=== PATIENT | female | born 2000 | race Caucasian/White ===

== ENCOUNTER 2020-06-18 18:44 | Emergency (ER) | payer BC ==
[2020-06-18 19:50] LABS: BLOOD UREA NITROGEN,BUN 7 mg/dL (7.0-18.0); CARBON DIOXIDE,CO2 23.6 mmol/L (21.0-32.0); CHLORIDE,CL 103 mmol/L (98-107); GLUCOSE RANDOM 84 mg/dL (74-106); LIPASE 100 U/L (73-393); POTASSIUM,K 3.8 mmol/L (3.5-5.1); SODIUM,NA 138 mmol/L (136-145)
--- NOTE | 2020-06-18 20:23 | US ---
INDICATION: Right flank pain TECHNIQUE: Ultrasound OB pelvis transabdominal. Real-time keating-scale imaging of the fetus was performed with anatomic survey limited to biometric measurements. COMPARISON: None FINDINGS: Sonographic imaging demonstrates a single intrauterine gestation. Mild right renal pelvicaliectasis is present and may be physiologic. The appendix cannot be identified by sonography. heart rate: 146 bpm Orientation: Cephalic Placenta: Anterior Amniotic fluid: Subjectively normal with RICHI of 12.1 cm and SDP of 4.2 cm. Cervix: Not visualized The composite ultrasound gestational age is calculated at 18 weeks, 1 day with an estimated sonographic due date of 11/18/2020. The estimated weight is 215 +/-32 grams which lies at the 57%. The following biometric measurements were obtained: Biparietal diameter: 4 cm Head circumference: 15.3 cm Abdominal circumference: 12.1 cm Femur length: 2.6 cm IMPRESSION: 1. Single viable intrauterine with an estimated gestational age of 18 weeks, 1 day. 2. Mild right renal pelvicaliectasis is present and may be physiologic. Clinical correlation and follow-up is recommended to exclude the less likely possibility of distal ureteral obstruction. Dictated by John Pulido MD @ 06/18/2020 8:22:48 PM Dictated by: John Pulido MD @ 06/18/2020 20:23:12 (Electronically Signed)
--- NOTE | 2020-06-18 20:49 | EDM.PDOC ---
ED HPI GENERAL MEDICAL PROBLEM - General Chief Complaint: Flank Pain Stated Complaint: Right Flank Pain Time Seen by Provider: 06/18/20 18:44 Source of Information: Reports: Patient History Limitations: Reports: No Limitations - History of Present Illness INITIAL COMMENTS - FREE TEXT/NARRATIVE: HISTORY AND PHYSICAL: History of present illness: Patient is a 20-year-old female who presents to the ED today with concern of acute onset right-sided flank pain that began a few hours prior (4pm) to arrival to the ED. Patient states that she was sitting when she began feeling sharp sensations of her right flank area that she states the sharp sensations come and go. Patient states when the sharp sensations happen, she does get nauseous and has had 2-3 episodes of vomiting associated with the pain. Patient states that she is approximately 18 weeks in gestation and has had a normal thus far. Patient states she follows with Dr. Loera at [facility] and has had a routine . Patient denies any cramping sensations of her abdomen or vaginal bleeding / change in discharge. Patient denies fever, chills, chest pain, shortness of breath, or cough. Denies headache, neck stiff ness, change in vision, syncope, or near syncope. Denies abdominal pain, diarrhea, constipation, or dysuria. Has not noted any blood in urine or stool. Patient has been eating and drinking appropriately prior to onset of symptoms. Review of systems: As per history of present illness and below otherwise all systems reviewed and negative. Past medical history: As per history of present illness and as reviewed below otherwise noncontributory. Surgical history: As per history of present illness and as reviewed below otherwise noncontributory. Social history: See social history for further information Family history: As per history of present illness and as reviewed below otherwise noncontributory. Physical exam: General: Patient is alert, oriented, and in no acute distress. Patient sitting comfortably on exam table. Vitals stable and reviewed by me. HEENT: Atraumatic, normocephalic, pupils equal and reactive bilaterally, negative for conjunctival pallor or scleral icterus, mucous membranes moist, TMs normal bilaterally, throat clear, neck supple, nontender, trachea midline. No drooling or trismus noted. No meningeal signs. No hot potato voice noted. Lungs: Clear to auscultation, breath sounds equal bilaterally, chest nontender. Heart: S1S2, regular rate and rhythm without overt murmur Abdomen: Soft, nondistended, nontender. Negative for masses or hepatosplenomegaly. Positive for costovertebral tenderness of the right. Pelvis: Stable nontender. Genitourinary: Deferred. Rectal: Deferred. Skin: Intact, warm, dry. No lesions or rashes noted. Extremities: Atraumatic, negative for cords or calf pain. Neurovascular unremarkable. Neuro: Awake, alert, oriented. Cranial nerves II through XII unremarkable. Cerebellum unremarkable. Motor and sensory unremarkable throughout. Exam nonfocal. Notes: FHT at bedside 145. Dr. Estrada verbally involved in patient care. Patient has not had any episodes of vomiting today in the ED and remains comfortable/stable on exam. Abdomen is non tender but does have positive CVA tenderness of the right flank area. Ultrasound shows a single viable intrauterine with an estimated gestational age of 18 weeks and 1 day. Mild right renal pelvocaliectasis possibly physiologic vs distal ureteral obstruction. Urinalysis shows that patient does have hematuria with 2-4 red blood cells, negative leukocyte esterase, negative nitrate, 1-3 white blood cells Patient does have mild leukocytosis with lactate WNL. Suspect due to status at this time as no further indication for infection suspected. With patient sudden onset of sharp colicky right flank pain, presence of right- sided hydronephrosis, and hematuria, I am suspecting that patient has a possible ureterolithiasis. I did offer patient further imaging to assess for this but she declines at this time. All risks vs benefits discussed with patient and expresses understanding. Although patient does not have an overt infection of her urine at this time, will send urine for culture as well as placed on Macrobid due to the presence of 1-3 white blood cells and a sample that is mildly contaminated. Offered to send in pain medication for patient, but she states she would prefer to take only Tylenol for pain management. Patient was placed on the expedited follow-up list to be seen on Saturday and sent home with a strainer. Strict return precautions thoroughly discussed as long as the importance for follow up on Saturday for reevaluation. Voices understanding and is agreeable to plan of care. Denies any further questions or concerns at this time. Diagnostics: CBC, CMP, UA w culture, Lipase, 2nd trimester abd US Therapeutics: None Prescription: Zofran, Macrobid (Patient was offered RX for pain medication but she declines at this time) Impression: Right flank pain with hydronephrosis Hematuria , 18 weeks, viable Plan: 1. Take medication as prescribed. You can use Tylenol as directed for pain and discomfort as this is safe to use in . 2. Follow up on Saturday with your OBGYN or primary care provider. You have been placed on the expedited follow up list. Use the strainer that has been provided to you during urination to possibly retrieve a stone. 3. Return to the ED as needed and as discussed. Definitive disposition and diagnosis as appropriate pending reevaluation and review of above. 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 ED EXAM, GENERAL - Physical Exam Exam: See Below (see dictation) Course - Vital Signs Last Recorded V/S: Last Vital Signs Temp 96.3 F L 06/18/20 20:15 Pulse 85 06/18/20 20:15 Resp 18 06/18/20 20:15 BP 105/61 06/18/20 20:15 Pulse Ox 96 06/18/20 20:15 - Orders/Labs/Meds Orders: Active Orders 24 hr Category Date Time Status CULTURE URINE [RM] Stat Lab 06/18/20 20:41 Ordered Labs: Laboratory Tests 06/18/20 06/18/20 06/18/20 Range/Units 19:14 19:25 19:25 WBC 15.80 H (4.0-11.0) K/uL RBC 4.00 L (4.30-5.90) M/uL Hgb 12.3 (12.0-16.0) g/dL Hct 36.3 (36.0-46.0) % MCV 90.8 (80.0-98.0) fL MCH 30.8 (27.0-32.0) pg MCHC 33.9 (31.0-37.0) g/dL RDW Std Deviation 41.8 (28.0-62.0) fl RDW Coeff of Molina 13 (11.0-15.0) % Plt Count 205 (150-400) K/uL MPV 11.20 (7.40-12.00) fL Neut % (Auto) 81.7 H (48.0-80.0) % Lymph % (Auto) 14.0 L (16.0-40.0) % [place] % (Auto) 3.8 (0.0-15.0) % Eos % (Auto) 0.4 (0.0-7.0) % Baso % (Auto) 0.1 (0.0-1.5) % Neut # (Auto) 12.9 H (1.4-5.7) K/uL Lymph # (Auto) 2.2 (0.6-2.4) K/uL Karnes # (Auto) 0.6 (0.0-0.8) K/uL Eos # (Auto) 0.1 (0.0-0.7) K/uL Baso # (Auto) 0.0 (0.0-0.1) K/uL Nucleated RBC % 0.0 /100WBC Nucleated RBCs # 0 K/uL Lactate (0.20-2.00) mmol/L Sodium 138 (136-145) mmol/L Potassium 3.8 (3.5-5.1) mmol/L Chloride 103 (98-107) mmol/L Carbon Dioxide 23.6 (21.0-32.0) mmol/L BUN 7 (7.0-18.0) mg/dL Creatinine 0.7 (0.6-1.0) mg/dL Est Cr Clr Drug Dosing 108.86 mL/min Estimated GFR (MDRD) > 60.0 ml/min Glucose 84 (74-106) mg/dL Calcium 8.9 (8.5-10.1) mg/dL Total Bilirubin 0.3 (0.2-1.0) mg/dL AST 17 (15-37) IU/L ALT 24 (14-63) IU/L Alkaline Phosphatase 58 (46-116) U/L Total Protein 7.5 (6.4-8.2) g/dL Albumin 3.3 L (3.4-5.0) g/dL Globulin 4.2 H (2.6-4.0) g/dL Albumin/Globulin Ratio 0.8 L (0.9-1.6) Lipase 100 (73-393) U/L Urine Color YELLOW Urine Appearance CLEAR Urine pH 6.5 (5.0-8.0) Ur Specific [place] 1.020 (1.001-1.035) Urine Protein NEGATIVE (NEGATIVE) mg/dL Urine Glucose (UA) NEGATIVE (NEGATIVE) mg/dL Urine Ketones 15 H (NEGATIVE) mg/dL Urine Occult Blood TRACE-INTACT H (NEGATIVE) Urine Nitrite NEGATIVE (NEGATIVE) Urine Bilirubin NEGATIVE (NEGATIVE) Urine Urobilinogen 0.2 (<2.0) EU/dL Ur Leukocyte Esterase NEGATIVE (NEGATIVE) Urine RBC 2-4 (0-2/HPF) Urine WBC 1-3 (0-5/HPF) Ur Epithelial Cells FEW (NONE-FEW) Urine Bacteria FEW (NEGATIVE) Urine Mucus LIGHT (NONE-MOD) 06/18/20 Range/Units 19:28 WBC (4.0-11.0) K/uL RBC (4.30-5.90) M/uL Hgb (12.0-16.0) g/dL Hct (36.0-46.0) % MCV (80.0-98.0) fL MCH (27.0-32.0) pg MCHC (31.0-37.0) g/dL RDW Std Deviation (28.0-62.0) fl RDW Coeff of Molina (11.0-15.0) % Plt Count (150-400) K/uL MPV (7.40-12.00) fL Neut % (Auto) (48.0-80.0) % Lymph % (Auto) (16.0-40.0) % Karnes % (Auto) (0.0-15.0) % Eos % (Auto) (0.0-7.0) % Baso % (Auto) (0.0-1.5) % Neut # (Auto) (1.4-5.7) K/uL Lymph # (Auto) (0.6-2.4) K/uL Karnes # (Auto) (0.0-0.8) K/uL Eos # (Auto) (0.0-0.7) K/uL Baso # (Auto) (0.0-0.1) K/uL Nucleated RBC % /100WBC Nucleated RBCs # K/uL Lactate 0.6 (0.20-2.00) mmol/L Sodium (136-145) mmol/L Potassium (3.5-5.1) mmol/L Chloride (98-107) mmol/L Carbon Dioxide (21.0-32.0) mmol/L BUN (7.0-18.0) mg/dL Creatinine (0.6-1.0) mg/dL Est Cr Clr Drug Dosing mL/min Estimated GFR (MDRD) ml/min Glucose (74-106) mg/dL Calcium (8.5-10.1) mg/dL Total Bilirubin (0.2-1.0) mg/dL AST (15-37) IU/L ALT (14-63) IU/L Alkaline Phosphatase (46-116) U/L Total Protein (6.4-8.2) g/dL Albumin (3.4-5.0) g/dL Globulin (2.6-4.0) g/dL Albumin/Globulin Ratio (0.9-1.6) Lipase (73-393) U/L Urine Color Urine Appearance Urine pH (5.0-8.0) Ur Specific [place] (1.001-1.035) Urine Protein (NEGATIVE) mg/dL Urine Glucose (UA) (NEGATIVE) mg/dL Urine Ketones (NEGATIVE) mg/dL Urine Occult Blood (NEGATIVE) Urine Nitrite (NEGATIVE) Urine Bilirubin (NEGATIVE) Urine Urobilinogen (<2.0) EU/dL Ur Leukocyte Esterase (NEGATIVE) Urine RBC (0-2/HPF) Urine WBC (0-5/HPF) Ur Epithelial Cells (NONE-FEW) Urine Bacteria (NEGATIVE) Urine Mucus (NONE-MOD) Departure - Departure Time of Disposition: 20:41 Disposition: Home, Self-Care 01 Clinical Impression: Right flank pain, Hydronephrosis, right Hematuria Qualifiers: Hematuria type: unspecified type Qualified Code(s): R31.9 - Hematuria, unspecified Qualifiers: Weeks of gestation: 18 weeks Qualified Code(s): Z3A.18 - 18 weeks gestation of - Discharge Information Prescriptions: Ondansetron [Zofran ODT] 4 mg PO Q6H PRN #8 tab.dis PRN Reason: Nausea/Vomiting Referrals: Mariela Arroyo MD [Primary Care Provider] - Additional Instructions: The following information is given to patients seen in the emergency department who are being discharged to home. This information is to outline your options for follow-up care. We provide all patients seen in our emergency department with a follow-up referral. The need for follow-up, as well as the timing and circumstances, are variable depending upon the specifics of your emergency department visit. If you don't have a primary care physician on staff, we will provide you with a referral. We always advise you to contact your personal physician following an emergency department visit to inform them of the circumstance of the visit and for follow-up with them and/or the need for any referrals to a consulting specialist. The emergency department will also refer you to a specialist when appropriate. This referral assures that you have the opportunity for follow-up care with a specialist. All of these measure are taken in an effort to provide you with optimal care, which includes your follow-up. Under all circumstances we always encourage you to contact your private physician who remains a resource for coordinating your care. When calling for follow-up care, please make the office aware that this follow-up is from your recent emergency room visit. If for any reason you are refused follow-up, please contact the [facility] Emergency Department at and asked to speak to the emergency department charge nurse. [facility] [address] [place] [id number] [address] [facility] [address] [place] [address] 1. Take medication as prescribed. You can use Tylenol as directed for pain and discomfort as this is safe to use in . 2. Follow up on Saturday with your OBGYN or primary care provider. You have been placed on the expedited follow up list. Use the strainer that has been provided to you during urination to possibly retrieve a stone. 3. Return to the ED as needed and as discussed. Sepsis Event Note (ED) - Evaluation Sepsis Screening Result: No Definite Risk - Focused Exam Vital Signs: Vital Signs Temp Pulse Resp BP Pulse Ox 06/18/20 20:15 96.3 F L 85 18 105/61 96 06/18/20 18:53 96.4 F L 91 16 111/59 L 99 - My Orders Last 24 Hours: My Active Orders 06/18/20 20:41 CULTURE URINE [RM] Stat - Assessment/Plan Last 24 Hours: My Active Orders 06/18/20 20:41 CULTURE URINE [RM] Stat
== END 2020-06-18 21:04 | disposition home or self-care (01) ==
LOC: MW.ED 18:44
DX: O99.891 Other specified diseases and conditions complicating pregnancy (principal); R31.9 Hematuria, unspecified; N13.30 Unspecified hydronephrosis; Z88.2 Allergy status to sulfonamides; Z3A.18 18 weeks gestation of pregnancy
CPT/HCPCS: 36415; 76805; 76805-26; 80053; 81001; 83605; 83690; 85025; 87086; 99284; 99284-25

== ENCOUNTER 2020-11-14 20:12 | Inpatient (IN) | payer BC ==
[2020-11-14] MEDS ORDERED: Oxytocin/0.9 % Sodium Chloride 30 UNIT/500 ML BAG IV SCH (20:15)
[2020-11-14] MEDS ORDERED: Ondansetron 4 MG/2 ML SDV IVPUSH PRN (20:15)
[2020-11-14] MEDS ORDERED: Sodium Chloride 0.9% 2.5 ML Syringe FLUSH PRN (20:15)
[2020-11-14] MEDS ORDERED: Tranexamic Acid 1,000 MG in Sodium Chloride 0.9% 100 ML IV PRN (20:15)
[2020-11-14] MEDS ORDERED: Sodium Chloride 0.9% 10 ML Syringe FLUSH PRN (20:15)
[2020-11-14] MEDS ORDERED: Lidocaine 1% 50 ML MDV INJECT PRN (20:15)
[2020-11-14] MEDS ORDERED: Methylergonovine 0.2 MG/1 ML Amp IM PRN (20:15)
[2020-11-14] MEDS ORDERED: Butorphanol 1 MG/ML SDV IVPUSH PRN (20:15)
[2020-11-14] MEDS ORDERED: Carboprost Tromethamine 250 MCG/1 ML Amp IM PRN (20:15)
[2020-11-14] MEDS ORDERED: Sodium Chloride 0.9% 10 ML SDV IV PRN (20:15)
[2020-11-14] MEDS ORDERED: Misoprostol 200 MCG Tab PO PRN (20:15)
[2020-11-14] MEDS ORDERED: Water For Irrigation,Sterile 1,000 ML Container IRR PRN (20:15)
[2020-11-14] MEDS ORDERED: Nalbuphine 10 MG/1 ML Vial IVPUSH PRN (20:15)
[2020-11-14] MEDS: Lactated Ringers 1,000 ML IV SCH ×2 (20:25→21:11)
[2020-11-14] MEDS ORDERED: Ampicillin 2 GM in Sodium Chloride 0.9% 100 ML IV ONE (20:30)
[2020-11-14] MEDS ORDERED: Ampicillin 2 GM Vial ONE (20:33)
[2020-11-14] MEDS ORDERED: Sodium Chloride 0.9% 100 ML ONE (20:34)
[2020-11-14] MEDS ORDERED: Ropivacaine HCl/PF 100 ML ONE (20:46)
[2020-11-14] MEDS ORDERED: fentaNYL 100 MCG/2 ML SDV ONE (20:46)
--- NOTE | 2020-11-14 21:11 | PCM.PREANE ---
Preanesthetic Assessment - Anesthesia/Transfusion/Family Hx Anesthesia History: Prior Anesthesia Without Reaction Family History of Anesthesia Reaction: No - Physical Assessment NPO Status Date: 11/14/20 NPO Status Time: 18:00 Height: 1.63 m Weight: 82.1 kg ASA Class: 2 - Lab Values: Laboratory Last Values WBC 12.34 K/uL (4.0-11.0) H 11/14/20 20:25 RBC 4.11 M/uL (4.30-5.90) L 11/14/20 20:25 Hgb 12.0 g/dL (12.0-16.0) 11/14/20 20:25 Hct 35.5 % (36.0-46.0) L 11/14/20 20:25 MCV 86.4 fL (80.0-98.0) 11/14/20 20:25 MCH 29.2 pg (27.0-32.0) 11/14/20 20:25 MCHC 33.8 g/dL (31.0-37.0) 11/14/20 20:25 RDW Std Deviation 42.1 fl (28.0-62.0) 11/14/20 20:25 RDW Coeff of Molina 14 % (11.0-15.0) 11/14/20 20:25 Plt Count 202 K/uL (150-400) 11/14/20 20:25 MPV 12.50 fL (7.40-12.00) H 11/14/20 20:25 Nucleated RBC % 0.0 /100WBC 11/14/20 20:25 Nucleated RBCs # 0 K/uL 11/14/20 20:25 - Allergies Allergies/Adverse Reactions: Allergies Allergy/AdvReac Type Severity Reaction Status Date / Time Sulfa (Sulfonamide Allergy Rash Verified 11/14/20 20:26 Antibiotics) - Acknowledgements Anesthesia Type Planned: Epidural Pt an Appropriate Candidate for the Planned Anesthesia: Yes Alternatives and Risks of Anesthesia Discussed w Pt/Guardian: Yes Pt/Guardian Understands and Agrees with Anesthesia Plan: Yes PreAnesthesia Questionnaire - Past Health History Medical/Surgical History: Denies 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 History: D&C - Infectious Disease History Infectious Disease History: Reports: None - Past Surgical History HEENT Surgical History: Reports: Oral Surgery Other HEENT Surgeries/Procedures: wisdom teeth - HOME MEDS Home Medications: Home Meds Vits #93/Iron Fum/FA [ Formula Tablet] 1 each PO DAILY 10/21/20 [History] - CURRENT (IN HOUSE) MEDS Current Meds: Current Medications Butorphanol Tartrate (Butorphanol 1 Mg/Ml Sdv) 1 mg IVPUSH Q1H PRN PRN Reason: Pain Carboprost Tromethamine (Carboprost Tromethamine 250 Mcg/1 Ml Amp) 250 mcg IM ASDIRECTED PRN PRN Reason: Post Hemorrhage Oxytocin/Sodium Chloride (Oxytocin 30 Unit/500 Ml-Ns) 30 unit in 500 mls @ 999 mls/hr IV TITRATE JENN Tranexamic Acid 1,000 mg/ (Sodium Chloride) 110 mls @ 660 mls/hr IV ONETIME PRN PRN Reason: Bleeding Lactated Ringer's (Ringers, Lactated) 1,000 mls @ 150 mls/hr IV ASDIRECTED [facility] Last Admin: 11/14/20 20:25 Dose: 999 mls/hr Documented by: Lidocaine HCl (Lidocaine 1% 50 Ml Mdv) 50 ml INJECT ONETIME PRN PRN Reason: Laceration repair Methylergonovine Maleate (Methylergonovine 0.2 Mg/1 Ml Amp) 0.2 mg IM ASDIRECTED PRN PRN Reason: Post Hemorrhage Misoprostol (Misoprostol 200 Mcg Tab) 200 mcg PO ONETIME PRN PRN Reason: Post Hemorrhage Nalbuphine HCl (Nalbuphine 10 Mg/1 Ml Vial) 10 mg IVPUSH Q1H PRN PRN Reason: Pain (severe 7-10) Ondansetron HCl (Ondansetron 4 Mg/2 Ml Sdv) 4 mg IVPUSH Q6H PRN PRN Reason: Nausea/Vomiting Sodium Chloride (Sodium Chloride 0.9% 10 Ml Syringe) 10 ml FLUSH ASDIRECTED PRN PRN Reason: Keep Vein Open Sodium Chloride (Sodium Chloride 0.9% 2.5 Ml Syringe) 2.5 ml FLUSH ASDIRECTED PRN PRN Reason: Keep Vein Open Sodium Chloride (Sodium Chloride 0.9% 10 Ml Sdv) 10 ml IV ASDIRECTED PRN PRN Reason: IV Use Sterile Water (Water For Irrigation,Sterile 1,000 Ml Container) 1,000 ml IRR ASDIRECTED PRN PRN Reason: delivery Discontinued Medications Ampicillin Sodium (Ampicillin 2 Gm Vial) Confirm Administered Dose 2 gm .ROUTE .STK-MED ONE Stop: 11/14/20 20:34 Fentanyl (Fentanyl 100 Mcg/2 Ml Sdv) Confirm Administered Dose 100 mcg .ROUTE .STK-MED ONE Stop: 11/14/20 20:47 Ampicillin Sodium 2 gm/ Sodium (Chloride) 100 mls @ 200 mls/hr IV ONETIME ONE Stop: 11/14/20 20:59 Last Admin: 11/14/20 20:46 Dose: 200 mls/hr Documented by: Sodium Chloride (Normal Saline) Confirm Administered Dose 100 mls @ as directed .ROUTE .STK-MED ONE Stop: 11/14/20 20:35 Ropivacaine (Naropin 0.2%) Confirm Administered Dose 100 mls @ as directed .ROUTE .STK-MED ONE Stop: 11/14/20 20:47
[2020-11-14] MEDS ORDERED: ePHEDrine 50 MG/ML SDV IVPUSH PRN (21:14)
[2020-11-14] MEDS ORDERED: Phenylephrine/Normal Saline 100 MCG/ML 10 ML Syringe IVPUSH PRN (21:14)
--- NOTE | 2020-11-14 21:14 | PCM.PRNOTE ---
- Free Text/Narrative Note: Anes Note Patient requests epidural for L&D. Sitting position. Level L3-L4 midline approach. Sterile technique. Chloraprep scrub to lumbar area. Sterile fenestrated drape applied. Epidural space easily achieved single attempt with ease using MARK technique. MARK at 3 cm. Cath threaded 5 cm with ease. Cath secured a t skin using sterile clear adhesive dressing. 2104 Test 3 cc 1.5% lido with epi negative. 2106 Load 10cc 0.2% ropivicaine with 1 mcg cc fentnayl in slow divided doses. 2111 Pumps started with 90 cc same solution. Rate is 8 cc hr wiht 6 cc q 20 min prn bolus. Massimo well. Time with patient [id number] Gustavo Cruz CRNA
[2020-11-14] MEDS ORDERED: Calcium Carbonate 500 MG Tab.Chew PO ONE (23:16)
[2020-11-14] MEDS ORDERED: Sodium Chloride 0.9% 50 ML ONE (23:31)
[2020-11-14] MEDS ORDERED: Ampicillin 1 GM Vial ONE (23:31)
[2020-11-14] MEDS ORDERED: Ampicillin 1 GM in Sodium Chloride 0.9% 50 ML IV SCH (23:45)
[2020-11-15] MEDS ORDERED: Bisacodyl 10 MG Supp RECTAL PRN (01:25)
[2020-11-15] MEDS ORDERED: Docusate Sodium 100 MG Cap PO PRN (01:25)
[2020-11-15] MEDS ORDERED: Ibuprofen 800 MG Tab PO PRN (01:25)
[2020-11-15] MEDS ORDERED: oxyCODONE 5 MG Tab PO PRN (01:25)
[2020-11-15] MEDS ORDERED: Witch Hazel Medicated Pads 40/Jar TOP PRN (01:25)
[2020-11-15] MEDS ORDERED: Lanolin 100% Cream 7 GM Tube TOP PRN (01:25)
[2020-11-15] MEDS ORDERED: Benzocaine/Menthol 20%-0.5% Spray 78 GM Cannister TOP PRN (01:25)
[2020-11-15] MEDS ORDERED: Acetaminophen 500 MG Tab PO PRN (01:25)
--- NOTE | 2020-11-15 01:29 | PCM.DEL ---
L & D Note - General Info Date of Service: 11/15/20 Mother's Due Date: 11/21/20 - Delivery Note Labor: Spontaneous Delivery Outcome: Livebirth Infant Delivery Method: Spontaneous Vaginal Delivery-Single Presentation: Vertex Nuchal Cord: None Anesthesia Type: Epidural Amniotic Fluid Description: Clear Episiotomy Type: None Laceration: None Placenta: Intact, Spontaneous Cord: 3 Vessels Estimated Blood Loss: 200 Resuscitation Needed: No Gibbon: Suctioned, Stimulated, Remington Used Score 1 min: 9 Score 5 min: 9 Delivery Comments (Free Text/Narrative):: Live female infant, weight 3480g Received 2 doses of Ampicillin prophylaxis prior to delivery - General Info Date of Service: 11/15/20 - Patient Data Weight - Most Recent: 82.1 kg I&O - Last 24 Hours: Intake & Output 11/14/20 11/14/20 11/15/20 14:59 22:59 06:59 Intake Total 1100 950 Balance 1100 950 Lab Results Last 24 Hours: Laboratory Results - last 24 hr 11/14/20 11/14/20 11/14/20 Range/Units 20:25 20:25 20:35 WBC 12.34 H (4.0-11.0) K/uL RBC 4.11 L (4.30-5.90) M/uL Hgb 12.0 (12.0-16.0) g/dL Hct 35.5 L (36.0-46.0) % MCV 86.4 (80.0-98.0) fL MCH 29.2 (27.0-32.0) pg MCHC 33.8 (31.0-37.0) g/dL RDW Std Deviation 42.1 (28.0-62.0) fl RDW Coeff of Molina 14 (11.0-15.0) % Plt Count 202 (150-400) K/uL MPV 12.50 H (7.40-12.00) fL Nucleated RBC % 0.0 /100WBC Nucleated RBCs # 0 K/uL SARS-CoV-2 RNA (TREY) NEGATIVE (NEGATIVE) Blood Type A POSITIVE Antibody Screen NEGATIVE Med Orders - Current: Current Medications Butorphanol Tartrate (Butorphanol 1 Mg/Ml Sdv) 1 mg IVPUSH Q1H PRN PRN Reason: Pain Carboprost Tromethamine (Carboprost Tromethamine 250 Mcg/1 Ml Amp) 250 mcg IM ASDIRECTED PRN PRN Reason: Post Hemorrhage Ephedrine Sulfate (Ephedrine 50 Mg/Ml Sdv) 10 mg IVPUSH Q5M PRN PRN Reason: Hypotension Oxytocin/Sodium Chloride (Oxytocin 30 Unit/500 Ml-Ns) 30 unit in 500 mls @ 999 mls/hr IV TITRATE [facility] Last Admin: 11/15/20 01:10 Dose: 999 mls/hr Documented by: Tranexamic Acid 1,000 mg/ (Sodium Chloride) 110 mls @ 660 mls/hr IV ONETIME PRN PRN Reason: Bleeding Lactated Ringer's (Ringers, Lactated) 1,000 mls @ 150 mls/hr IV ASDIRECTED [facility] Last Admin: 11/14/20 21:11 Dose: 999 mls/hr Documented by: Ampicillin Sodium 1 gm/ Sodium (Chloride) 50 mls @ 100 mls/hr IV Q4H [facility] Last Admin: 11/14/20 23:48 Dose: 100 mls/hr Documented by: Lidocaine HCl (Lidocaine 1% 50 Ml Mdv) 50 ml INJECT ONETIME PRN PRN Reason: Laceration repair Methylergonovine Maleate (Methylergonovine 0.2 Mg/1 Ml Amp) 0.2 mg IM ASDIRECTED PRN PRN Reason: Post Hemorrhage Misoprostol (Misoprostol 200 Mcg Tab) 200 mcg PO ONETIME PRN PRN Reason: Post Hemorrhage Nalbuphine HCl (Nalbuphine 10 Mg/1 Ml Vial) 10 mg IVPUSH Q1H PRN PRN Reason: Pain (severe 7-10) Ondansetron HCl (Ondansetron 4 Mg/2 Ml Sdv) 4 mg IVPUSH Q6H PRN PRN Reason: Nausea/Vomiting Phenylephrine HCl (Phenylephrine/Normal Saline 100 Mcg/Ml 10 Ml Syringe) 0.1 mg IVPUSH Q5M PRN PRN Reason: Hypotension Sodium Chloride (Sodium Chloride 0.9% 10 Ml Syringe) 10 ml FLUSH ASDIRECTED PRN PRN Reason: Keep Vein Open Sodium Chloride (Sodium Chloride 0.9% 2.5 Ml Syringe) 2.5 ml FLUSH ASDIRECTED PRN PRN Reason: Keep Vein Open Sodium Chloride (Sodium Chloride 0.9% 10 Ml Sdv) 10 ml IV ASDIRECTED PRN PRN Reason: IV Use Sterile Water (Water For Irrigation,Sterile 1,000 Ml Container) 1,000 ml IRR ASDIRECTED PRN PRN Reason: delivery Discontinued Medications Ampicillin Sodium (Ampicillin 2 Gm Vial) Confirm Administered Dose 2 gm .ROUTE .STK-MED ONE Stop: 11/14/20 20:34 Ampicillin Sodium (Ampicillin 1 Gm Vial) Confirm Administered Dose 1 gm .ROUTE .STK-MED ONE Stop: 11/14/20 23:32 Calcium Carbonate/Glycine (Calcium Carbonate 500 Mg Tab.Chew) 1,000 mg PO ONETIME ONE Stop: 11/14/20 23:17 Last Admin: 11/14/20 23:35 Dose: 1,000 mg Documented by: Fentanyl (Fentanyl 100 Mcg/2 Ml Sdv) Confirm Administered Dose 100 mcg .ROUTE .STK-MED ONE Stop: 11/14/20 20:47 Ampicillin Sodium 2 gm/ Sodium (Chloride) 100 mls @ 200 mls/hr IV ONETIME ONE Stop: 11/14/20 20:59 Last Admin: 11/14/20 20:46 Dose: 200 mls/hr Documented by: Sodium Chloride (Normal Saline) Confirm Administered Dose 100 mls @ as directed .ROUTE .STK-MED ONE Stop: 11/14/20 20:35 Ropivacaine (Naropin 0.2%) Confirm Administered Dose 100 mls @ as directed .ROUTE .STK-MED ONE Stop: 11/14/20 20:47 Sodium Chloride (Normal Saline) Confirm Administered Dose 50 mls @ as directed .ROUTE .[facility]-MED ONE Stop: 11/14/20 23:32 - Problem List & Annotations (1) Vaginal delivery SNOMED Code(s): 030337885 Code(s): O80 - ENCOUNTER FOR FULL-TERM UNCOMPLICATED DELIVERY Status: Acute Current Visit: Yes - Problem List Review Problem List Initiated/Reviewed/Updated: Yes - My Orders Last 24 Hours: My Active Orders 11/14/20 20:15 Butorphanol [Stadol] 1 mg IVPUSH Q1H PRN Carboprost Tromethamine [Hemabate DS] 250 mcg IM ASDIRECTED PRN Lactated Ringers [Ringers, Lactated] 1,000 ml IV ASDIRECTED Lidocaine 1% [Xylocaine 1%] 50 ml INJECT ONETIME PRN Methylergonovine [Methergine] 0.2 mg IM ASDIRECTED PRN Nalbuphine [Nubain] 10 mg IVPUSH Q1H PRN Ondansetron [Zofran] 4 mg IVPUSH Q6H PRN Oxytocin/0.9 % Sodium Chloride [Oxytocin 30 Unit/500 ML-NS] 30 unit in 500 ml IV TITRATE Sodium Chloride 0.9% [Normal Saline] 10 ml IV ASDIRECTED PRN Sodium Chloride 0.9% [Saline Flush] 10 ml FLUSH ASDIRECTED PRN Sodium Chloride 0.9% [Saline Flush] 2.5 ml FLUSH ASDIRECTED PRN Tranexamic Acid [Cyklokapron] 1,000 mg Sodium Chloride 0.9% [Normal Saline] 100 ml IV ONETIME Water For Irrigation,Sterile [Sterile Water for Irrigation] 1,000 ml IRR ASDIRECTED PRN miSOPROStoL [Cytotec] 200 mcg PO ONETIME PRN Resuscitation Status Routine 11/14/20 20:18 Patient Status [ADT] Routine Heart Tones [RC] CONTINUOUS Non Stress Test [RC] PER UNIT ROUTINE May Shower [RC] ASDIRECTED Notify Provider [RC] PRN Up ad Jannie [RC] ASDIRECTED Vaginal Exam [RC] PRN Vital Signs [RC] PER UNIT ROUTINE Scalp Electrode [WOMSER] Per Unit Routine Peripheral IV Insertion Adult [OM.PC] Routine 11/14/20 20:25 RPR (SYPHILIS SERO) W/ RFLX [REF] Routine 11/14/20 23:45 Ampicillin 1 gm Sodium Chloride 0.9% [Normal Saline] 50 ml IV Q4H 11/15/20 01:25 Notify Provider Vital Signs [RC] ASDIRECTED Acetaminophen [Tylenol Extra Strength] 1,000 mg PO Q6H PRN Benzocaine/Menthol [Dermoplast Pain Relief 20%-0.5% [place]] 78 gm TOP ASDIRECTED PRN Docusate Sodium [Colace] 100 mg PO BID PRN Ibuprofen [Motrin] 800 mg PO Q8H PRN Lanolin [Lansinoh HPA] See Dose Instructions TOP ASDIRECTED PRN bisacodyL [Dulcolax] 10 mg RECTAL ONETIME PRN oxyCODONE 5 mg PO Q2H PRN witch Johnathan [Tucks] 1 pad TOP ASDIRECTED PRN Breast Pump [WOMSER] Per Unit Routine 11/15/20 01:26 Patient Status [ADT] Routine Cooling Warming Measures [RC] ASDIRECTED May Shower [RC] ASDIRECTED Up ad Jannie [RC] ASDIRECTED Vital Signs [RC] PER UNIT ROUTINE Assess Lochia [WOMSER] Per Unit Routine Assess Uterine Involution [WOMSER] Per Unit Routine Ice Therapy [OM.PC] Per Unit Routine Perineal Care [OM.PC] Per Unit Routine Peripheral IV Discontinue [OM.PC] Routine Sitz Bath [OM.PC] Per Unit Routine 11/15/20 Breakfast Regular Diet [DIET] 11/16/20 05:11 HEMOGLOBIN/HEMATOCRIT,HH [HEME] Timed - Assessment Assessment:: 20yo s/p at 39w1d - Plan Plan:: Admit to unit for routine care. Rh positive, Rubella immune. Received 2 doses of Ampicillin for GBS prophylaxis.
--- NOTE | 2020-11-15 02:22 | OR ---
SURGEON: Josiane Diallo MD DATE OF PROCEDURE: 11/15/2020 PREOPERATIVE DIAGNOSES: 1. A 20-year-old 3, para 1-0-1-1 at 39 weeks and 0 days' gestation. 2. Group B Streptococcus positive. 3. Labor. POSTOPERATIVE DIAGNOSES: 1. A 20-year-old, 3, para 2-0-1-2, at 39 weeks and 1 day's gestation. 2. Group B Streptococcus positive. 3. Labor. PROCEDURE: Spontaneous vaginal delivery. PRIMARY SURGEON: Josiane Diallo MD. ANESTHESIA: Epidural. ESTIMATED BLOOD LOSS: 200 mL. FINDINGS: Live female in cephalic presentation. score 9 and 9 at one and five minutes respectively. Weight 3480 g. Placenta intact, three vessel cord. INDICATIONS: A 20-year-old G3, P 1-0-1-1, who presented at 39 weeks and 0 days gestation complains of contractions every 2 minutes for the last 2 hours. Upon presentation, her cervix was found to be 5 to 6 cm dilated. She was admitted to Labor and Delivery, and ampicillin was started for GBS prophylaxis. She received an epidural for pain control and progressed to 8 cm dilated. After approximately 2 hours, artificial rupture of membranes occurred with clear fluid noted. She continued to labor with contractions every 2 to 3 minute. She received a second dose of ampicillin prophylaxis for group B strep. She progressed to complete cervical dilation and began pushing. I was called to the room. DESCRIPTION OF PROCEDURE: I arrived to the room with head at +4 station. Over the next 2 contractions, the patient pushed and delivered a live female . The head was delivered followed quickly by the shoulders and remainder of the body. The infant was placed on the maternal abdomen. After approximately 60 seconds, the cord was clamped and cut. Cord blood was obtained. The placenta then delivered intact with 3-vessel cord via the Shanks-Gaytan maneuver. The perineum was inspected, and no lacerations were noted. Fundus was firm below the umbilicus with minimal bleeding. The patient and tolerated the delivery well. [id number] / MODL /[id number] MTDD
--- NOTE | 2020-11-15 06:52 | PCM48HPAN ---
Post Anesthesia Note - EVALUATION WITHIN 48HRS OF ANESTHETIC Vital Signs in Normal Range: Yes Patient Participated in Evaluation: Yes Respiratory Function Stable: Yes Airway Patent: Yes Cardiovascular Function Stable: Yes Hydration Status Stable: Yes Pain Control Satisfactory: Yes Nausea and Vomiting Control Satisfactory: Yes Mental Status Recovered: Yes Vital Signs: Last Vital Signs Temp 36.9 C 11/15/20 04:40 Pulse 78 11/15/20 04:40 Resp 16 11/15/20 04:40 BP 109/55 L 11/15/20 04:40 Pulse Ox 97 11/15/20 04:40
--- NOTE | 2020-11-16 10:19 | PCM.PNPP ---
- General Info Date of Service: 11/16/20 Admission Dx/Problem (Free Text): Subjective Update: Resting comfortably in bed with . Pain well controlled. Lochia decreasing. Ambulating and voiding without difficulty.Tolerating regular diet. going well. - General Info Date of Service: 11/16/20 - Patient Data Vital Signs - Most Recent: Last Vital Signs Temp 96.8 F L 11/16/20 07:43 Pulse 72 11/16/20 07:43 Resp 16 11/16/20 07:43 BP 107/65 11/16/20 07:43 Pulse Ox 97 11/16/20 05:00 Weight - Most Recent: 181 lb Lab Results - Last 24 Hours: Laboratory Results - last 24 hr 11/16/20 Range/Units 05:12 Hgb 11.0 L (12.0-16.0) g/dL Hct 33.1 L (36.0-46.0) % Med Orders - Current: Current Medications Acetaminophen (Acetaminophen 500 Mg Tab) 1,000 mg PO Q6H PRN PRN Reason: Pain Benzocaine/Menthol (Benzocaine/Menthol 20%-0.5% [place] 78 Gm Cannister) 78 gm TOP ASDIRECTED PRN PRN Reason: Perineal Comfort Measure Last Admin: 11/15/20 03:10 Dose: 1 canister Documented by: Bisacodyl (Bisacodyl 10 Mg Supp) 10 mg RECTAL ONETIME PRN PRN Reason: Constipation Butorphanol Tartrate (Butorphanol 1 Mg/Ml Sdv) 1 mg IVPUSH Q1H PRN PRN Reason: Pain Carboprost Tromethamine (Carboprost Tromethamine 250 Mcg/1 Ml Amp) 250 mcg IM ASDIRECTED PRN PRN Reason: Post Hemorrhage Docusate Sodium (Docusate Sodium 100 Mg Cap) 100 mg PO BID PRN PRN Reason: Constipation Last Admin: 11/15/20 21:38 Dose: 100 mg Documented by: Emollient Ointment (Lanolin 100% Cream 7 Gm Tube) 0 gm TOP ASDIRECTED PRN PRN Reason: Sore Nipples Last Admin: 11/15/20 03:10 Dose: 1 tube Documented by: Ephedrine Sulfate (Ephedrine 50 Mg/Ml Sdv) 10 mg IVPUSH Q5M PRN PRN Reason: Hypotension Oxytocin/Sodium Chloride (Oxytocin 30 Unit/500 Ml-Ns) 30 unit in 500 mls @ 999 mls/hr IV TITRATE [facility] Last Admin: 11/15/20 01:10 Dose: 999 mls/hr Documented by: Tranexamic Acid 1,000 mg/ (Sodium Chloride) 110 mls @ 660 mls/hr IV ONETIME PRN PRN Reason: Bleeding Lactated Ringer's (Ringers, Lactated) 1,000 mls @ 150 mls/hr IV ASDIRECTED [facility] Last Admin: 11/14/20 21:11 Dose: 999 mls/hr Documented by: Ampicillin Sodium 1 gm/ Sodium (Chloride) 50 mls @ 100 mls/hr IV Q4H [facility] Last Admin: 11/14/20 23:48 Dose: 100 mls/hr Documented by: Ibuprofen (Ibuprofen 800 Mg Tab) 800 mg PO Q8H PRN PRN Reason: Pain Lidocaine HCl (Lidocaine 1% 50 Ml Mdv) 50 ml INJECT ONETIME PRN PRN Reason: Laceration repair Methylergonovine Maleate (Methylergonovine 0.2 Mg/1 Ml Amp) 0.2 mg IM ASD IRECTED PRN PRN Reason: Post Hemorrhage Misoprostol (Misoprostol 200 Mcg Tab) 200 mcg PO ONETIME PRN PRN Reason: Post Hemorrhage Nalbuphine HCl (Nalbuphine 10 Mg/1 Ml Vial) 10 mg IVPUSH Q1H PRN PRN Reason: Pain (severe 7-10) Ondansetron HCl (Ondansetron 4 Mg/2 Ml Sdv) 4 mg IVPUSH Q6H PRN PRN Reason: Nausea/Vomiting Oxycodone HCl (Oxycodone 5 Mg Tab) 5 mg PO Q2H PRN PRN Reason: Pain Phenylephrine HCl (Phenylephrine/Normal Saline 100 Mcg/Ml 10 Ml Syringe) 0.1 mg IVPUSH Q5M PRN PRN Reason: Hypotension Sodium Chloride (Sodium Chloride 0.9% 10 Ml Syringe) 10 ml FLUSH ASDIRECTED PRN PRN Reason: Keep Vein Open Sodium Chloride (Sodium Chloride 0.9% 2.5 Ml Syringe) 2.5 ml FLUSH ASDIRECTED PRN PRN Reason: Keep Vein Open Sodium Chloride (Sodium Chloride 0.9% 10 Ml Sdv) 10 ml IV ASDIRECTED PRN PRN Reason: IV Use Sterile Water (Water For Irrigation,Sterile 1,000 Ml Container) 1,000 ml IRR ASDIRECTED PRN PRN Reason: delivery Last Admin: 11/15/20 01:00 Dose: 1,000 ml Documented by: Sadia Benitez (Sadia Benitez Medicated Pads 40/Jar) 1 pad TOP ASDIRECTED PRN PRN Reason: comfort care Last Admin: 11/15/20 03:10 Dose: 1 tub Documented by: Discontinued Medications Ampicillin Sodium (Ampicillin 2 Gm Vial) Confirm Administered Dose 2 gm .ROUTE .STK-MED ONE Stop: 11/14/20 20:34 Ampicillin Sodium (Ampicillin 1 Gm Vial) Confirm Administered Dose 1 gm .ROUTE .STK-MED ONE Stop: 11/14/20 23:32 Calcium Carbonate/Glycine (Calcium Carbonate 500 Mg Tab.Chew) 1,000 mg PO ONETIME ONE Stop: 11/14/20 23:17 Last Admin: 11/14/20 23:35 Dose: 1,000 mg Documented by: Fentanyl (Fentanyl 100 Mcg/2 Ml Sdv) Confirm Administered Dose 100 mcg .ROUTE .STK-MED ONE Stop: 11/14/20 20:47 Ampicillin Sodium 2 gm/ Sodium (Chloride) 100 mls @ 200 mls/hr IV ONETIME ONE Stop: 11/14/20 20:59 Last Admin: 11/14/20 20:46 Dose: 200 mls/hr Documented by: Sodium Chloride (Normal Saline) Confirm Administered Dose 100 mls @ as directed .ROUTE .STK-MED ONE Stop: 11/14/20 20:35 Ropivacaine (Naropin 0.2%) Confirm Administered Dose 100 mls @ as directed .ROUTE .STK-MED ONE Stop: 11/14/20 20:47 Sodium Chloride (Normal Saline) Confirm Administered Dose 50 mls @ as directed .ROUTE .STK-MED ONE Stop: 11/14/20 23:32 - Infant Interaction Disposition, : [place] in Room with Family Interaction: Holding Infant Feeding: Breastfed Infant; Nursed Well Support Person: - Recovery Exam Fundal Tone: Firm Fundal Level: 2 Fingerbreadths Below Umbilicus Fundal Placement: Midline Lochia Amount: Scant Lochia Color: Rubra/Red Perineum Description: Intact, Minimal Bruising/Swelling Other Perinuem Description: intact, moderate swelling Episiotomy/Laceration: None Bladder Status: Voiding Urinary Elimination: Voided - Exam General: Alert Lungs: Normal Respiratory Effort Cardiovascular: Regular Rate GI/Abdominal Exam: Soft, Non-Tender Extremities: Normal Range of Motion, Non-Tender, No Pedal Edema Skin: Warm, Dry, Intact Neurological: No New Focal Deficit Psy/Mental Status: Normal Mood - Problem List Review Problem List Initiated/Reviewed/Updated: Yes - My Orders Last 24 Hours: My Active Orders 11/16/20 10:05 Ready for Discharge [RC] PER UNIT ROUTINE - Assessment Assessment:: 20yo s/p at 39w1d - Plan Plan:: Routine cares * RH positive, rubella immune, GBS positive s/p 2 doses of ampicillin * Encourage ambulation and fluid intake * Regular diet as tolerated * Undecided on contraception, partner considering vasectomy * going well Dispo: stable. Anticipate discharge today pending maternal/ status. Discharge precautions reviewed. Patient to follow up at [facility] in 4 weeks for appointment.
== END 2020-11-16 10:35 | disposition home or self-care (01) | DRG 560 ==
LOC: MW.OBCHECK 20:12 → MW.OB 20:12 → MW.OBCHECK 20:18 → OBSVTOIN 11-15 01:26 → MW.OB 11-15 02:52
PROVIDERS: ADMIT Obstetrics & Gynecology; ATTEND Obstetrics & Gynecology
PROC: 10E0XZZ Delivery of Products of Conception, External Approach (ICD-10-PCS; principal; 2020-11-15)
PROC: 10907ZC Drainage of Amniotic Fluid, Therapeutic from Products of Conception, Via Natural or Artificial Opening (ICD-10-PCS; 2020-11-15)
PROC: 3E0R3BZ Introduction of Anesthetic Agent into Spinal Canal, Percutaneous Approach (ICD-10-PCS; 2020-11-15)
PROC: 00HU33Z Insertion of Infusion Device into Spinal Canal, Percutaneous Approach (ICD-10-PCS; 2020-11-15)
DX: O99.824 Streptococcus B carrier state complicating childbirth (principal); Z3A.39 39 weeks gestation of pregnancy; Z37.0 Single live birth; Z20.822 Contact with and (suspected) exposure to COVID-19
CPT/HCPCS: 01967; 36415; 51702; 59025; 59409; 85014; 85018; 85027; 86592; 86850; 86900; 86901; A9270-GY; J0290; J2590; J2795; J3010; J7120; U0002

== ENCOUNTER 2020-11-17 13:21 | Emergency (ER) | payer BC ==
[2020-11-17] MEDS ORDERED: Sodium Chloride 0.9% 10 ML Syringe FLUSH PRN (13:44)
[2020-11-17] MEDS ORDERED: Sodium Chloride 0.9% 2.5 ML Syringe FLUSH PRN (13:44)
[2020-11-17 14:21] LABS: BLOOD UREA NITROGEN,BUN 8 mg/dL (7.0-18.0); CARBON DIOXIDE,CO2 25.2 mmol/L (21.0-32.0); CHLORIDE,CL 105 mmol/L (98-107); GLUCOSE RANDOM 67 mg/dL (74-106); POTASSIUM,K 3.8 mmol/L (3.5-5.1); SODIUM,NA 139 mmol/L (136-145)
--- NOTE | 2020-11-17 15:24 | US ---
INDICATION: LE EDEMA, SATURDAY TECHNIQUE: Ultrasound venous duplex lower extremity bilateral. Compression venous exam was performed using keating scale, color Doppler, and spectral Doppler imaging. COMPARISON: None. FINDINGS: Sonographic imaging demonstrates the common femoral, deep femoral, superficial femoral, popliteal, posterior tibial and greater saphenous veins to be fully compressible with normal color Doppler blood flow in both lower extremities. IMPRESSION: Normal bilateral lower extremity venous ultrasound, no sign of deep venous thrombosis. Dictated by: Yeyo Jimenez MD @ 11/17/2020 15:24:06 (Electronically Signed)
--- NOTE | 2020-11-17 15:26 | EDM.PDOC ---
ED HPI GENERAL MEDICAL PROBLEM - General Chief Complaint: Lower Extremity Injury/Pain Stated Complaint: RT SIDE PAIN Time Seen by Provider: 11/17/20 13:39 - History of Present Illness INITIAL COMMENTS - FREE TEXT/NARRATIVE: HISTORY AND PHYSICAL: History of present illness: This is a 20-year-old female who presents ER today complaining of bilateral lower extremity most right leg much more swollen than the left. Patient reports that she is on Saturday. Patient reports that she had swelling to both legs during her however today she was concerned because she felt that her right leg has become more swollen than prior. Patient denies any other symptomatology. Patient denies any recent fevers, shakes, chills, nausea, vomiting, diarrhea, dysuria, frequency, urgency, chest pain or shortness of breath. Patient denies any history of DVT or PE in the past. Patient denies any family history of DVT or PE in the past. Patient reports no issues with hypertension during . Patient reports no issues with proteinuria during . Patient reports that her was essentially uneventful. Review of systems: As per history of present illness and below otherwise all systems reviewed and negative. Past medical history: As per history of present illness and as reviewed below otherwise noncontributory. Surgical history: As per history of present illness and as reviewed below otherwise noncontributory. Social history: No reported history of drug abuse. Family history: As per history of present illness and as reviewed below otherwise noncontributory. Physical exam: This patient was seen and evaluated during the 2019 SARS-CoV-2 novel coronavirus pandemic period. Community viral transmission is ongoing at time of this encounter and the emergency department is operating under pandemic response procedures. Constitutional: Patient is oriented to person, place, and time. Appears well- developed and well-nourished. No distress. HEENT: Moist mucous membranes Head: Normocephalic and atraumatic Eyes: Right eye exhibits no discharge. Left eye exhibits no discharge. No scleral icterus Neck: Normal range of motion. No tracheal deviation present. Cardiovascular: Normal rate and regular rhythm. Pulmonary: Effort normal, no respiratory distress. Abdominal: No distention Musculoskeletal: Normal range of motion Neurologic: Alert and oriented to person, place and time. Skin: [place], warm and dry. Psychiatric: Normal mood and affect. Behavior is normal. Judgment and thought content normal. Nursing note and vital signs have been reviewed Patient has 1-2+ bipedal pitting edema to both lower extremities with right slightly greater than the left. Patient has good pulses bilaterally with excellent capillary refill. Diagnostics: Ultrasound of bilateral lower extremities are negative for DVT. CBC is normal. BNP normal. BMP with a normal creatinine. Therapeutics: [] Assessment and plan: This is a 20-year-old female who presents ER today complaining of increased unilateral lower extremity edema. Patient's labs are all within normal limits. Patient's blood pressure here is within normal limits and does not have concerns for preeclampsia. Patient has a normal BNP, normal renal function. Normal CBC. Patient's symptoms are most likely secondary to peripheral edema secondary to gravity in . Patient stable to be discharged home with close outpatient follow-up with her OB doctor. Definitive disposition and diagnosis as appropriate pending reevaluation and review of above. - Related Data Allergies Allergy/AdvReac Type Severity Reaction Status Date / Time Sulfa (Sulfonamide Allergy Rash Verified 11/17/20 13:38 Antibiotics) Home Meds: Home Meds . [No Known Home Meds] 11/17/20 [History] Past Medical History - Past Health History Medical/Surgical History: Denies Medical/Surgical History Genitourinary History: Reports: Renal Calculus [employer] History: Reports: Other [employer] History: D&C - Infectious Disease History Infectious Disease History: Reports: None - Past Surgical History HEENT Surgical History: Reports: Oral Surgery Other HEENT Surgeries/Procedures: wisdom teeth Social & Family History - Family History Family Medical History: No Pertinent Family History - Tobacco Use Tobacco Use Status *Q: Never Tobacco User - Caffeine Use Caffeine Use: Reports: None - Recreational Drug Use Recreational Drug Use: No Review of Systems - Review of Systems Review Of Systems: See Below ED EXAM, GENERAL - Physical Exam Exam: See Below Course - Vital Signs Last Recorded V/S: Last Vital Signs Temp 96.4 F L 11/17/20 13:38 Pulse 84 11/17/20 13:38 Resp 17 11/17/20 13:38 BP 116/73 11/17/20 13:38 Pulse Ox 97 11/17/20 13:38 - Orders/Labs/Meds Orders: Active Orders 24 hr Category Date Time Status Venous Doppler Lwr Ext Bi [US] Stat Exams 11/17/20 13:45 Taken UA W/TRACY RFLX IF INDICATED [URIN] Stat Lab 11/17/20 13:45 Ordered Sodium Chloride 0.9% [Saline Flush] Med 11/17/20 13:44 Active 10 ml FLUSH ASDIRECTED PRN Sodium Chloride 0.9% [Saline Flush] Med 11/17/20 13:44 Active 2.5 ml FLUSH ASDIRECTED PRN Saline Lock Insert [OM.PC] Stat Oth 11/17/20 13:44 Ordered Medication Orders Sodium Chloride (Sodium Chloride 0.9% 10 Ml Syringe) 10 ml FLUSH ASDIRECTED PRN PRN Reason: Keep Vein Open Last Admin: 11/17/20 13:52 Dose: 10 ml Documented by: [id number] Sodium Chloride (Sodium Chloride 0.9% 2.5 Ml Syringe) 2.5 ml FLUSH ASDIRECTED PRN PRN Reason: Keep Vein Open Last Admin: 11/17/20 13:52 Dose: 2.5 ml Documented by: [id number] Labs: Laboratory Tests 11/17/20 11/17/20 11/17/20 Range/Units 13:57 13:57 13:57 WBC 10.41 (4.0-11.0) K/uL RBC 3.72 L (4.30-5.90) M/uL Hgb 10.8 L (12.0-16.0) g/dL Hct 32.7 L (36.0-46.0) % MCV 87.9 (80.0-98.0) fL MCH 29.0 (27.0-32.0) pg MCHC 33.0 (31.0-37.0) g/dL RDW Std Deviation 44.3 (28.0-62.0) fl RDW Coeff of [place] 14 (11.0-15.0) % Plt Count 208 (150-400) K/uL MPV 11.20 (7.40-12.00) fL Neut % (Auto) 63.6 (48.0-80.0) % Lymph % (Auto) 27.5 (16.0-40.0) % [place] % (Auto) 6.9 (0.0-15.0) % Eos % (Auto) 1.9 (0.0-7.0) % Baso % (Auto) 0.1 (0.0-1.5) % Neut # (Auto) 6.6 H (1.4-5.7) K/uL Lymph # (Auto) 2.9 H (0.6-2.4) K/uL [place] # (Auto) 0.7 (0.0-0.8) K/uL Eos # (Auto) 0.2 (0.0-0.7) K/uL Baso # (Auto) 0.0 (0.0-0.1) K/uL Nucleated RBC % 0.0 /100WBC Nucleated RBCs # 0 K/uL Sodium 139 (136-145) mmol/L Potassium 3.8 (3.5-5.1) mmol/L Chloride 105 (98-107) mmol/L Carbon Dioxide 25.2 (21.0-32.0) mmol/L BUN 8 (7.0-18.0) mg/dL Creatinine 0.8 (0.6-1.0) mg/dL Est Cr Clr Drug Dosing 95.25 mL/min Estimated GFR (MDRD) > 60.0 ml/min Glucose 67 L (74-106) mg/dL Calcium 8.0 L (8.5-10.1) mg/dL Total Bilirubin 0.3 (0.2-1.0) mg/dL AST 28 (15-37) IU/L ALT 26 (14-63) IU/L Alkaline Phosphatase 123 H (46-116) U/L B-Natriuretic Peptide 62 (<100) PG/ML Total Protein 6.7 (6.4-8.2) g/dL Albumin 2.6 L (3.4-5.0) g/dL Globulin 4.1 H (2.6-4.0) g/dL Albumin/Globulin Ratio 0.6 L (0.9-1.6) Meds: Medications Generic Name Dose Route Start Last Admin Trade Name Freq PRN Reason Stop Dose Admin Sodium Chloride 10 ml 11/17/20 13:44 11/17/20 13:52 Sodium Chloride 0.9% 10 Ml Syringe FLUSH 10 ml ASDIRECTED PRN Administration Keep Vein Open Sodium Chloride 2.5 ml 11/17/20 13:44 11/17/20 13:52 Sodium Chloride 0.9% 2.5 Ml Syringe FLUSH 2.5 ml ASDIRECTED PRN Administration Keep Vein Open Departure - Departure Time of Disposition: 15:31 Disposition: Home, Self-Care 01 Condition: Good Clinical Impression: Peripheral edema, edema - Discharge Information Instructions: Peripheral Edema Referrals: PCP,None [Primary Care Provider] - Additional Instructions: You were seen and evaluated in the ER today secondary to swelling to your lower extremities. The ultrasound that we obtained revealed no evidence of any blood clots. All your blood tests including your kidney function, liver function, heart failure tests, were all within normal limits. Please keep your legs elevated and follow-up with your doctor for further evaluation. The following information is given to patients seen in the emergency department who are being discharged to home. This information is to outline your options for follow-up care. We provide all patients seen in our emergency department with a follow-up referral. The need for follow-up, as well as the timing and circumstances, are variable depending upon the specifics of your emergency department visit. If you don't have a primary care physician on staff, we will provide you with a referral. We always advise you to contact your personal physician following an emergency department visit to inform them of the circumstance of the visit and for follow-up with them and/or the need for any referrals to a consulting specialist. The emergency department will also refer you to a specialist when appropriate. This referral assures that you have the opportunity for follow-up care with a specialist. All of these measure are taken in an effort to provide you with optimal care, which includes your follow-up. Under all circumstances we always encourage you to contact your private physician who remains a resource for coordinating your care. When calling for follow-up care, please make the office aware that this follow-up is from your recent emergency room visit. If for any reason you are refused follow-up, please contact the [facility] Emergency Department at and asked to speak to the emergency department charge nurse. [facility] - [facility] [address] [place] [id number] [id number] Sepsis Event Note (ED) - Evaluation Sepsis Screening Result: No Definite Risk - Focused Exam Vital Signs: Vital Signs Temp Pulse Resp BP Pulse Ox 11/17/20 13:38 96.4 F L 84 17 116/73 97 - My Orders Last 24 Hours: My Active Orders 11/17/20 13:44 Sodium Chloride 0.9% [Saline Flush] 10 ml FLUSH ASDIRECTED PRN Sodium Chloride 0.9% [Saline Flush] 2.5 ml FLUSH ASDIRECTED PRN Saline Lock Insert [OM.PC] Stat 11/17/20 13:45 Venous Doppler Lwr Ext Bi [US] Stat UA W/TRACY RFLX IF INDICATED [URIN] Stat - Assessment/Plan Last 24 Hours: My Active Orders 11/17/20 13:44 Sodium Chloride 0.9% [Saline Flush] 10 ml FLUSH ASDIRECTED PRN Sodium Chloride 0.9% [Saline Flush] 2.5 ml FLUSH ASDIRECTED PRN Saline Lock Insert [OM.PC] Stat 11/17/20 13:45 Venous Doppler Lwr Ext Bi [US] Stat UA W/TRACY RFLX IF INDICATED [URIN] Stat
== END 2020-11-17 15:55 | disposition home or self-care (01) ==
LOC: MW.ED 13:21
DX: O12.05 Gestational edema, complicating the puerperium (principal); Z88.2 Allergy status to sulfonamides
CPT/HCPCS: 36415; 80053; 83880; 85025; 93970; 93970-26; 99284-25